=== PATIENT | female | born 1945 | race Caucasian/White ===

== ENCOUNTER → 2018-12-04 | Outpatient (CLI) | payer MEDICARE, OTHER | LOC: M.RAD 11-29 12:59 → EDUNIT# 11-29 12:59 → M.RAD 10:46 → M.MRI 11:30 | DX: Z12.31 Encounter for screening mammogram for malignant neoplasm of breast (principal); M85.851 Other specified disorders of bone density and structure, right thigh; M85.852 Other specified disorders of bone density and structure, left thigh; R29.810 Facial weakness ==